=== PATIENT | female | born 1940 | race Caucasian/White ===

== ENCOUNTER 2018-08-08 15:46 | Inpatient (IN) | payer OTHER ==
[~2018-08-08] VITALS: Ht 160 cm; Wt 45.4 kg
--- NOTE | ~2018-08-08 | D ---
[facility] [place] [address] DISCHARGE SUMMARY Name: EDIL DOWD Room #: 520B-B [facility] IN M.R.#: [id number] Admission: 08/08/18 ������������������ Attend Phys: Prasanna Montoya DO Discharge: 08/16/18 ������������������ Date of : 44 Report #: [id number] THIS REPORT FOR: //name// CC: Trinidad Montoya DATE OF SERVICE: 08/16/2018 ATTENDING: Prasanna Montoya D.O. HAND FLESHER: At the time of discharge, Basilio Hayes M.D. DISCHARGE DIAGNOSES: Major neurocognitive disorder, likely due to Alzheimer disease with behavioral disturbance, improved. Medical comorbidities at time of discharge include CVA, right-sided weakness, slurred speech, hemiparesis, indwelling Alexander catheter due to neurogenic bladder, gastroesophageal reflux disease, hypertension, hyperlipidemia, anemia, osteoarthritis, and history of DVT in the right lower extremity. DISCHARGE PLAN: She is discharged. The patient ate an average 80-90% of her meals. Her last ____ is in the hospital. The patient will be discharged to [facility]. Psychiatric medical care will be per that facility. EKG this admission showed a QTC of 435, QT 353, MT 176, normal rate 91 REASON FOR ADMISSION: Agitation. HOSPITAL COURSE: The patient was treated fairly aggressively with olanzapine titrated to 7.5 mg q. 12 hours. The patient was difficult to communicate with. She denied SI, AH. Difficult memory. Memory is clear at this point, VITAL SIGNS: Temperature is 36.9, pulse 94, respirations 20, BP 99/66, and O2 sat 95. MUSCULOSKELETAL: Nonambulatory in the wheelchair. GENERAL: She is well-developed, fairly nourished disabled appearing female with facial hirsutism. She denied SI, HI, denied intent to harm others. Mood and affect were constricted. Insight limited. Judgment limited. Fund of knowledge is well below average. Prognosis for this patient is guarded given factors including advanced dementia propensity to develop sepsis. ��������������������������������������������� ���������������������������������������� By: ��������������������������������������������� [id number] Prasanna Montoya, DO /nt
[2018-08-08 15:46] VITALS: BP 98/72
[2018-08-08 16:06] LABS: URINE BILIRUBIN NEGATIVE (Negative); URINE BLOOD NEGATIVE (Negative); URINE CLARITY CLOUDY; URINE COLOR YELLOW; URINE GLUCOSE-RANDOM* NEGATIVE (Negative); URINE KETONES 1+ (Negative); URINE LEUKOCYTES-REFLEX 2+ (Negative); URINE NITRITE-REFLEX POSITIVE (Negative); URINE PROTEIN (DIPSTICK) 2+ (Negative); URINE SPECIFIC GRAVITY 1.025 (1.005-1.035)
[2018-08-08] MEDS ORDERED: FLOMAX0.4 MG PO (16:07)
[2018-08-08] MEDS ORDERED: ATIVAN0.5 MG PO (16:07)
[2018-08-08] MEDS ORDERED: TYLENOL325 MG PO (16:07)
[2018-08-08] MEDS ORDERED: HYDROXYZINE HCL25 M1 PO (16:07)
[2018-08-08] MEDS ORDERED: VALSARTAN-HCTZ1 EAC1 PO (16:08)
[2018-08-08] MEDS ORDERED: KLOR-CON 1010 MEQ PO (16:08)
[2018-08-08] MEDS ORDERED: PREPLUS CA-FE1 EACH PO (16:08)
[2018-08-08 16:12] LABS: HEMATOCRIT 35.4 % (37.0-47.0); HEMOGLOBIN 12.2 gm/dL (12.0-15.0); MCH 34.6 pg (26.0-34.0); MCHC 34.5 g/dL (28.0-37.0); MCV 100.3 fL (80.0-100.0); RBC 3.53 mil/uL (4.20-5.00); RDW 13.8 % (10.5-14.5); WBC 7.7 thou/uL (4.0-11.0)
[2018-08-08 16:15] LABS: SQUAMOUS >10 Many /LPF (0-3)
[2018-08-08 16:16] LABS: AMORPHOUS URATES Few /LPF (None Seen); BACTERIA-REFLEX >30 Many /HPF (None Seen); CASTS None Seen /LPF (None Seen); URINE RBC None Seen /HPF (0-2)
[2018-08-08 16:21] LABS: CALCIUM 8.9 mg/dL (8.5-10.1); CREATININE 0.8 mg/dL (0.6-1.0); POTASSIUM 4.1 mmol/L (3.5-5.1)
[2018-08-08 16:25] LABS: AMP/METHAMP Negative (Negative); BARBITURATES Negative (Negative); BENZODIAZEPINES Negative (Negative); COCAINE Negative (Negative); METHADONE Negative (Negative); OPIATES Negative (Negative); PCP Negative (Negative)
[2018-08-08 16:26] LABS: ALBUMIN 3.1 g/dL (3.4-5.0); DIRECT BILIRUBIN 0.1 mg/dL (<0.1-0.3); TOTAL BILIRUBIN 0.5 mg/dL (<0.1-1.0); TOTAL PROTEIN 6.4 g/dL (6.4-8.2)
[2018-08-08 18:10] VITALS: BP 113/84
--- NOTE | 2018-08-09 02:53 | NUR ---
ADMISSION NOTE - EDIL WAS TRANSFERRED FROM [facility] ED UP [facility], SHE CURRENTLY HAS A DPOA WHO IS AYLIN AND ELINA. PT SEES DR. THACKER OUTSIDE. THE HAS HX OF A HEMMORHAGIC CVA IN 02/07 AND DVT IN THE RLL WHICH RESULTED IN R SIDED WEAKNESS. PER HX SHE USED TO LIVE WITH HER BROTHER, BUT BROTHER WAS UNABLE TO TAKE CARE OF HER AND SHE WAS MOVED TO [facility] HOME. [facility] REPORTS HER INCREASING AGGRESSION AND COMBATIVES THAT SHE IS NO LONGER REDIRECTABLE FOR THE THEIR PROGRAM. UPON ONE TO ONE HER VOICE IS GARBLED, IS DIFFICULT TO MAKE OUT WHAT SHE IS SAYING, UPON ADMISSION VSS, NO S/S OF DISTRESS. NURSING INITIATED ALL PRECAUTIONS RECEIVED ADMISSION ORDERS AND NOTIFIED HOSPITALIST, WHILE HOSPITALIST DOES NOT COVER DR. THOMPSON GROUP, CRANE FOLLOWER GAVE US ORDERS TO NOTIFY THAT GROUP IN THE MORNING WHICH WILL BE PASSED ALONG TO ON COMING STAFF. NURSING WILL ENSURE ALL PRECAUTIONS ARE IN PLACE AND MONITOR ON Q12 ROUNDS FOR SAFETY.
--- NOTE | 2018-08-09 06:36 | NUR ---
PATIENT GOT 7.8 HOURS OF SLEEP, PER STAFF
[2018-08-09 09:22] VITALS: BP 142/94
--- NOTE | 2018-08-09 12:25 | NUR ---
Pt was on a mechanical soft diet at prior facilty. If choking or difficulty chewing is observed, [facility]
--- NOTE | 2018-08-09 15:46 | NUR ---
ASSUMED CARE AT O700 THIS MORNING. PT. GOTTEN UP, DRESSED AND ON THE UNIT FOR BREAKFAST. HAS BEEN COMPLIANT WITH MEDICATIONS TODAY. HAS BEEN QUIET WHEN IN HER W/C AND ON THE UNIT. SHE HAS GONE TO GROUPS.
[2018-08-09 20:04] VITALS: BP 122/82
--- NOTE | 2018-08-09 22:19 | NUR ---
ASSUMED CARE OF THE PT AT 1914 PM. THE PT WAS LYING IN BED WHEN THIS ANIMAL BIOLOGIST CAME ON DUTY, SHE TOOK HER HS MEDICATION WITHOUT ANY DIFFICULY. INCONT AT TIMES. IS TALKING TO HERSELF AT THIS TIME. HEART RATE REGULAR, SHE HAS A PACEMAKER TO THE RIGHT SIDE OF HER CHEST. LUNGS CLEAR BILATERALLY, RESP, EVEN, AND UNLABORED. +BS HEARD IN ALL 4 QUADRANTS AT THIS TIME. ALERT ET CONFUSED AT TIMES. REMAINS ON 12 MINUTE CHECKS FOR HER SAFETY.
--- NOTE | 2018-08-09 23:32 | NUR ---
THE PT HAS BEEN YELLING LOUDLY, VERY IRRITABLE, TRYING TO GET OUT OF BED. READJUSTED THE PT IN BED SEVERAL TIMES AND SHE CONTINUES TO TRY TO GET OUT OF BED, YELLING AT STAFF. MEDICATED WITH ZYPREXA 2.5 IM TO HER LEFT HIP PER ORDER. STAFF WILL CONTINUE TO MONITOR EVERY 12 MINUTES FOR HER SAFETY.
--- NOTE | 2018-08-10 02:56 | NUR ---
THE PT APPEARS TO BE RESTING QUIETLY IN BED AT THIS TIME, RESP., EVEN, AND UNLABORED. REMAINS ON 12 MINUTE CHECKS FOR THE PT'S SAFETY.
--- NOTE | 2018-08-10 07:56 | EKG ---
[place] [address] [facility] [facility] [place] [address] ELECTROCARDIOGRAM REPORT Name: EDIL DOWD Room #: [facility] ADM IN M.R.#: [id number] ������������������ Admission: 08/08/18 ������������������ Attend Phys: Prasanna Montoya DO Discharge: ������������������ Date of : 42 Report #: [id number] ����������������������������������������������������������������� [id number] THIS REPORT FOR: //name// 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 ��������������������������������������������� 08/10/18 0756 1415 [id number] Sotero Carrasco MD, [facility] /EPI
[2018-08-10 09:57] VITALS: BP 83/54
--- NOTE | 2018-08-10 10:36 | NUR ---
SW schedule a family for pt on August 14, 2018 at 3:45pm.
--- NOTE | 2018-08-10 11:29 | NUR ---
PSYCHOSOCIAL ASSESSMENT Diagnosis: AGITATION Admit Date: 08/08/18 Psychiatrist: SUMIT Symptoms associated with current admission: Violence/aggression Anxiety/panic Presenting problems: Pt was apprehensive towards staff. Pt was yelling and playing with her feces. Precipitating Factors: Non-compliance psychothx Non-compliance medication Comments: History of High Risk Behavors: Hx violence/aggression Suicide Risk Factors: D A-Signs of alcohol/substance abuse w/ suicide ideation B-Recent suicidal thoughts or attempts C-Recent thoughts or attempts of harming someone else D-Altered mental status due to psychiatric/chem dep etiology E-The behavior exists - add comment PSYCHIATRIC HISTORY Age of onset: 78 Prior hospitalizations: Denies hx hospitalization Hospital names and dates, if available: Most Recent Outpatient HX: Denies prior OP services Additional information: Legal Status: DPOA Guardian/Conservatorship type: DPOA Contact name: Dominic Carlisle Contact phone: [phone] Other: Name: Phone: Other legal issues: (Arrests/convictions Current Status) None P.O. Name and Phone #: FAMILY HISTORY Place [place], [place] Raised in: [place] # Siblings & order: Pt have one brother, eldest Describe relationships within family of origin: Pt was close with her brother until he . Any psychiatric or substance abuse problems within family of origin: Y Has patient been sexually or physically abused, neglected or been taken advantage of financially? N Has the abuse been reported? N Other pertinent family information: Marital history/significant relationships: Domestic violence: N Children ages & who is caring for them: Pt has two adult children Is child welfare involved? N Drug history: None Alcohol Use: Frequency: Quantity: Have you ever felt you ought to Cut down on drinking? Have people Annoyed you by criticizing your drinking? Have you ever felt bad or Guilty about your drinking? Have you ever had a drink first thing in the morning to steady your nerves/get rid of a hangover(Eye senior research consultant) CAGE TOTAL 0 If CAGE score is 3 or more, notify provider for withdrawal orders! AXIS SCREENING TOOL [place] I Mood Disorders: [place] II Personality/Mental Retardation: [place] III Medical Impairment: Alzheimer's HTN [place] IV Problem(s) with: Other psych/environ prob Health care services [place] V: 50-Serious w/impairment Additional [place] comments: PERSONAL BACKGROUND Relevant cultural issues (ethnicity, values, beliefs, spiritual): Spiritual Confucianist: Evangelical Importance of episcopal to patient: Medium What hobbies/interests does the patient have? 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 Occupational/Work: Do you work? N Do you want to work? N How many hours do you work/week? 0 How many jobs have you had in the past 5 years? 0 Do you need assistance finding a job? N Does the patient need assistance in job training? N Source of income: SSI Does patient have a Payee? Y Payee name: Dominic Carlisle Approximate monthly income: 1500 Does patient have adequate funds for next 30 days? Y Education background: High school diploma Highest grade completed: 12th grade Other Educational/training programs: Functional deficits: Yes, see explain Explain functional deficits: RIGHT SIDED WEAKNESS FROM CVA Current living situation: Homeless [facility] Does the patient plan to continue there after DC? Yes Patient lives with: Unrelated adult Will family/significant other be involved in treatment? Other community support services utilized: Pt will need continuance care Support System Available (family/friend) Name: Dominic Carlisle Relationship: Son Name: Phone: Relationship: Name: Phone: Relationship: Patient strengths: Family support Motivated Insight Community support Patient's assets: Good self care Verbal Positive support system Patient's weaknesses: Chronic hx mental illness Education level Health problems Additional weaknesses: Pt need to be assessed for Major Neurocognitive Disorder Patient's perception of current manager social/case management needs: Pt family mention that SS is someone who assist with care PRELIMINARY DISCHARGE PLAN Discharge plan/Community resource contacts: Pt will be d/c to [facility] Discharge needs: Pt will need to be transported to . Problems anticipated on discharge: Compliance w/ med regimen Comments: (factors affecting DC plan/pt. response/interventions) Pt will be d/c to for continuance care. Pt will need a memory care setting.
--- NOTE | 2018-08-10 16:35 | NUR ---
PATIENT HAS BEEN UP AND OUT ON THE UNIT WITH ASSIST OF STAFF. PATIENT USES WHEELCHAIR FOR MOBILITY. SHE TOOK ALL MEDICATION CRUSHED IN APPLE SOURCE WITH LOTS OF ENCOURAGEMENT FROM STAFF. BETANCOURT CATH DISCONTINUED AT 1200HOURS, PER DR. ARANA'S ORDER. SHE HAS BEEN TOILETED X 2 AT THIS TIME, PATIENT IS VOIDING WITHOUT DIFFICULTY. PATIENT HAS AN ORDER FOR BLADDER SCAN IN 24 HOURS, THAT IS AT 12:00 ON 08/11/18, AND TO STRAIGHT CATH IF PVR IS GREATER THAN 400 CC. PATIENT IS ALERT WITH PERIODS OF FORGETFULNESS AND CONFUSION. SHE DENIES SUICIDAL AND HOMOCIDAL IDEATION. PATIENT NEED ASSIST WITH ADL, AND FEEDING. APPETITE IS FAIR, SHE IS EATING MEALS AND DRINKING FLUID FAIRLY WELL. NO AGGRESSION OR AGITATION NOTED. PATIENT CAN GET IRRITABLE WITH CARE, NO SIGN OF ACUTE DISTRESS NOTED. PATIENT CURRENTLY IN DAY ROOM VISITING WITH FAMILY, WILL MONITOR FOR SAFETY.
[2018-08-10 20:32] VITALS: BP 79/51
--- NOTE | 2018-08-10 22:38 | NUR ---
ASSUMED CARE OF THE PT AT 1915 PM. THE PT IS ALERT TO PERSON ET PLACE. THE PT HAS A PACEMAKER ON THE RIGHT SIDE OF HER CHEST. HEART RATE REGULAR. LUNGS CLEAR BILATERALLY, RESP., EVEN, AND UNLABORED. +BS HEARD IN ALL 4 QUADRANTS. THE PT HAS RIGHT SIDED WEAKNESS FROM A PREVIOUS STROKE. SHE IS TO BE TAKEN TO THE BATHROOM EVERY 2 HOURS WHEN AWAKE, PVR AFTER EACH TIME SHE VOIDS. REMAINS ON 12 MINUTE CHECKS FOR HER SAFETY.
[2018-08-11 00:56] VITALS: BP 110/76
--- NOTE | 2018-08-11 03:06 | NUR ---
BLADDER SCANNED THE PT AND SHE HAD 232 CC OF URINE IN HER BLADDER. ENCOURAGED THE PT TO DRINK FLUIDS.
--- NOTE | 2018-08-11 04:49 | NUR ---
STRAIGHT CATHED THE PT AT 0445 AM, GOT 300 CC OF CLEAR NATALIE URINE, THE PT HAD NOT VOIDED AT THIS SHIFT. REMAINS ON 12 MINUTE CHECKS FOR HER SAFETY.
[2018-08-11 08:31] VITALS: BP 119/71
--- NOTE | 2018-08-11 13:46 | NUR ---
CALLING OUT FREQUENTLY IN DAYROOM FOR VARIOUS SMALL ISSUES IE "MOVE MY LEG,PULL MY SHIRT DOWN,STRAIGHTEN MY SOCK"ETC. ANXIOUS FACIAL EXPRESSION BUT DOES SEEM TO CALM IF STAFF SITTING AT HER SIDE. BLADDER SCAN COMPLETED AT 0900 WITH 300ML RESULTS-DENIES FEELING DISCOMFORT IN PELVIC/BLADDER AREA UPON PALPATION. TRANSFERS WITH ASSIST OF TW0-INCONTINENT OF SMALL AMOUNT URINE IN BRIEF AT APPROX 0830.XYPREXA 2.5MG GIVEN PO PRN AT 1000 FOR INCREASED YELLING,IRRITABILITY AND AGITATION DID APPEAR LESS ANXIOUS DISTRAUGHT AND NO LONGER YELLING OUT CONSTANTLY APPROX 30 MIN AFTER ADMINISTRATION
--- NOTE | 2018-08-11 16:47 | NUR ---
SRINIVAS sent updated notes to hector ballesteros [facility] [phone]. talked to [facility] [phone]. She knows about the family meeting on Tuesday and understands that d/c might happen on Tuesday.
--- NOTE | 2018-08-11 17:21 | NUR ---
PT REPORTING SOME OCCASSIONAL MID-ABDOMINAL PAIN THAT SHE STATES "COMES AND GOES" STATES TO THIS NURSE "ITS NOT BAD RIGHT NOW BUT IT HURT AWHILE AGO" NO REPORTED PAIN UPON PALPATION OF PELVIC/ABDOMINAL AREA. DENIES FEELING LIKE SHE NEEDS TO VOID STATING "IT MORE MY STOMACH HURTING" BLADDER SCAN COMPLETED AT 1630 AND NOTED TO HAVE 237ML IN BLADDER-PLACED ON COMMODE AND HAD MEDIUM FORMED BM AND SCANT-LESS THAN 20CC URINE IN COMMODE.
[2018-08-11 19:46] VITALS: BP 89/51
--- NOTE | 2018-08-12 01:42 | NUR ---
Care assumed of patient at 1900: Patient sleeping in bed upon start of shift. Patient easily aroused for assessment and medication administration. Patient frustrated to be woken up. Patient receives abx tx for the dx of UTI. No s/s of adverse effects noted at this time. Patient incontinent of bladder x1. Orders obtained to d/c Zyprexa 2.5mg po BID; start Zyprexa 5mg po BID; change diet to mechanical soft due to difficulty chewing. Patient politely asked nurse to allow her to go back to sleep. Patient has been resting quietly.
--- NOTE | 2018-08-12 09:24 | H ---
[facility] [place] [address] HISTORY AND PHYSICAL Name: EDIL CARLISLE Room #: 520B-B ADM IN M.R.#: [id number] Admission: 08/08/18 ������������������ Attend Phys: Prasanna Montoya DO Discharge: ������������������ Date of : 42 Report #: [id number] THIS REPORT FOR: //name// CC: Trinidad Montoya DATE OF SERVICE: 08/08/2018 INPATIENT PSYCHIATRIC EVALUATION ATTENDING PHYSICIAN: Prasanna Montoya DO. NITRATE OPERATOR: Emigdio Martinez MD. NORMAL PRIMARY CARE PHYSICIAN: Trinidad Page MD. REASON FOR ADMISSION: The patient was sent from [facility]. HISTORY OF PRESENT ILLNESS: The patient has had increasing agitation over the last several days, acting aggressively towards staff. The patient is status post stroke. She does have an indwelling Alexander catheter, which was not known at the time I accepted the patient. UTI was found in the ER. Apparently, there was a CBC and chem panel done on 07/18/2018, which were both normal. She also had a right leg venous Doppler, which was positive for DVT on 07/24/2018. The patient is not currently on blood thinners. The patient has been yelling towards staff also at the nursing facility. PCP again, Dr. Page. On interview with the patient today, the patient is guarded. She states some being nosey. She is not oriented to day, only partially to situation. She is oriented to person. She is denying specific complaints, so lack of insight apparently. The emergency contact #1 is apparently Jassi Carlisle. Emergency contact #2, listed as a responsible alliance party, her daughter, Yessenia Chin, only to be in touch with them today PAST MEDICAL HISTORY: Includes CVA, right-sided weakness, slurred speech, Alexander, GERD, hypertension, hyperlipidemia, anemia, neuromuscular bladder dysfunction, osteoarthritis and right lower extremity DVT. PSYCHIATRIC HISTORY: Dementia, anxiety. MEDICATIONS: At nursing facility, acetaminophen 325 mg p.o. q.4 p.r.n. for pain, tamsulosin 0.4 mg p.o. daily for urinary retention, hydroxyzine 10 mg p.o. t.i.d. for anxiety, lorazepam 0.5 mg p.o. q.6 hours for anxiety, potassium chloride 10 mEq p.o. daily. She takes prePLUS calcium, iron, vitamin and valsartan/hydrochlorothiazide 160/12.5 mg p.o. daily. [address] [address] HISTORY AND PHYSICAL Name: EDIL CARLISLE Room #: 520B-B ADM IN M.R.#: [id number] Admission: 08/08/18 ������������������ Attend Phys: Prasanna Montoya DO Discharge: ������������������ Date of : 42 Report #: [id number] ALLERGIES: TO ASPIRIN, CODEINE, INFLUENZA, PENICILLIN. SOCIAL HISTORY: Denied recreational drug use, alcohol or tobacco use. REVIEW OF SYSTEMS: From Dr. Lopez in the Emergency Room, CONSTITUTIONAL: Denies fever, chills, malaise or unexplained weight change. EYES: Denies eye pain, visual change or discharge. HENT: Denies hearing changes, ear drainage, ear infections, ear pain, neck pain or neck stiffness. RESPIRATORY: Denies cough, shortness of breath, hemoptysis or respiratory distress. CARDIOVASCULAR: Denies chest pain, chest pain with exertion or edema. GASTROINTESTINAL: Denies abdominal pain, nausea, vomiting or diarrhea. GENITOURINARY: Denies burning, frequency or dysuria. MUSCULOSKELETAL: Denies back pain, joint pain, muscle weakness or myalgias. SKIN: Denies rash. PSYCHIATRIC: Denies homicidal or suicidal ideation or hallucinations. Ten-point review of systems was otherwise negative. PHYSICAL EXAMINATION: VITAL SIGNS: Weight 68.04 kilos translates to 150 pounds. Physical exam was normal grossly to the ER. She does have a right upper extremity hemiparesis and gait abnormality. LABORATORY DATA: From the ER: Sodium 141, potassium 4.1, chloride 103, bicarbonate 31, anion gap 7, BUN 15, creatinine 0.8, estimated GFR 70, glucose 106, calcium 8.9, total bilirubin 0.5, direct bilirubin 0.1, AST 21, ALT 23, alkaline phosphatase 95, total protein 6.4, albumin 3.1. Hematology: CBC: White count 7.7, H and H 12.2 and 35.4, platelet count 183. Urine tox screen is negative. UDS is positive for 2+ protein, 1+ ketones, positive nitrites, 2+ leukocyte esterase, 16-20 wbc's, greater than 10 squamous cells, few amorphous urates that is uric acid crystals and greater than 30 per high power field bacteria. Culture has been sent. The patient got IV fluids and 1 gram of Rocephin in the ER. I went ahead and ordered subsequent IM Rocephin today and tomorrow, 08/09/2018 and 08/10/2018. MENTAL STATUS EXAMINATION: This is a well-developed, disheveled, appearing older than stated age female. Attention limited. Concentration limited. Speech slow, soft deliberate. Thought process linear, limited. Thought content, relative poverty of thought. No psychomotor retardation. No psychomotor agitation. She is in normal chair, with fully intact. Insight limited. Judgment limited. Fund of knowledge below average at this point. FORMULATION: A 78-year-old female with history of dementia, probably vascular in origin, and to that end her diagnoses from the facility include, [facility] [address] [place] [address] HISTORY AND PHYSICAL Name: EDIL CARLISLE Room #: 520B-B ADM IN M.R.#: [id number] Admission: 08/08/18 ������������������ Attend Phys: Prasanna Montoya DO Discharge: ������������������ Date of : 42 Report #: [id number] forgot to mention this hemiplegia, hemiparesis, unspecified bronchitis. Actually, I do not see where it mentions of dementia, but I am suspecting it. PLAN: As follows, she will get cefuroxime 250 mg b.i.d., unspecified duration, hospice ordered that, tamsulosin 0.4 mg p.o. daily, potassium chloride 10 mEq p.o. daily, losartan 100 mg p.o. daily, hydrochlorothiazide 12.5 mg daily, trazodone 25 mg p.o. at bedtime p.r.n. She has got p.r.n. olanzapine and lorazepam 0.5 q.6 p.r.n. I think we will go ahead and discontinue rather the lorazepam, I think the trazodone as well, we will discontinue for now. I would like to start her on 2.5 mg q. 12 of scheduled olanzapine that will help her to get through any delirium associated with the urinary tract infection. We would evaluate and stabilize. ESTIMATED LENGTH OF STAY: 7-10 days. STRENGTHS: She is insured, has a supportive family. WEAKNESSES: Advancing age, physical debility, possible dementia. We will do a cognitive screen in a few days as well when things clear. ��������������������������������������������� <ELECTRONICALLY SIGNED> ���������������������������������������� By: Prasanna Montoya DO ��������������������������������������������� 08/12/18 0924 1348 1518 Prasanna Montoya DO /nt
[2018-08-12 10:49] VITALS: BP 100/67
--- NOTE | 2018-08-12 17:36 | NUR ---
PATIENT HAS BEEN RESTLESS AND ANXIOUS TODAY. ATTEMPTS TO EXPLAIN CONCERNS BUT DIFFICULT TO UNDERSTAND WITH APHASIC SPEECH AND NO LOWER DENTURES. COMPLAINED OF UPPER DENTURE SHIFTING AROUND IN MOUTH. APPETITE BETTER IF ASSISTED WITH FEEDING. ALSO DISTRAUGHT WANTING TO LEAVE - FIXATED ON GOING HOME. FRUSTRATED WITH HEMIPARIESIS OF RIGHT SIDE AND INABILITY TO HELP HERSELF. LOWER EXTREMITY NEEDS TO BE ELEVATED WHEN IN WHEELCHAIR AND ARM RESTING ON PILLOW. PATIENT TEARFUL AT TIMES - NEEDS MUCH REASSURANCE AND ENCOURAGEMENT. RESPONSIVE TO EMPATHY AND COMFORT MEASURES. ANXIETY LEVEL WAS ESCALATING LATER IN EVENING. CONTACTED NURSE PRACTIONER RON AND SHE PRESCRIBED ONE TIME DOSE OF SEROQUEL 25 MG. WHICH HELPED CONSIDERABLY TO CALM PATIENT DOWN . ADMINISTERED AROUND 1630 AND NOTABLY EFFECTIVE. ATE 25% - 50 % OF DINNER.
[2018-08-12 19:57] VITALS: BP 126/83
--- NOTE | 2018-08-12 22:50 | NUR ---
Care assumed of patient at 1900: Patient sitting in w/c in the day room upon start of shift. Patient interacting with another peer at the table. Patient ate 50% snack provided. Patient took medication whole without difficulty. Patient has garbled speech. Difficulty to understand patient at times. Patient alert and oriented to person. Patient requested to go home several times and became fixated on this. Patient repeating to all staff and peers several times that she wants to go home, someone please take her home. Patient assisted to her room and transferred to bedside commode with staff assist x2. Patient urinated approximately 150cc yellow urine. Patient denies HI/SI/AH/VH. Patient does appear depressed and becomes easily agitated with others. Patient started to cry out while laying in bed at approximately 2200. Patient reported having pain in her bladder. Patient denied having to use the bathroom and did not have any incontinence. Bladder scanned and displayed >999cc urine in bladder. Debbie Abdalla NP, notified. Patient has the diagnosis of neurogenic bladder. Tipton catheter was removed 08/10/18. Patient has been able to void small amounts over the last 2 days. Patient was straight cathed once over the last 48 hours, per medical record. PATIENT BILLER feels that voiding trial has not been effective for this patient and order obtained to replace tipton catheter to DD. Tipton cath 16F/10cc placed. Patient tolerated well. Output 1,200cc at this time. Patient appreciative and appears to be resting well.
[2018-08-13 10:00] VITALS: BP 105/54
--- NOTE | 2018-08-13 14:57 | NUR ---
Assumed pt care this am, pt has been on her wheelchair for most of the day. Prefers to have a pillow in between her legs while on her wheelchair. Right sided hemiparesis noted, needs assists when eating thus the increase in food and fluid intake. Speech is very difficult to understand, pt would sit with her peers in the family room and during meals. FC is patent draining light yellow urine. All medications taken. POC followed.
[2018-08-13 19:32] VITALS: BP 106/76
--- NOTE | 2018-08-14 00:23 | NUR ---
Care assumed of patient at 1900: Patient sitting in w/c in day room watching TV at start of shift. Patient alert and oriented to person only. Patient confused and forgetful. Patient has mumbled, slurred speech r/t CVA with right sided hemiplegia. Alexander catheter patent, draining clear, yellow urine. Patient ate 100% snack, required to be fed by staff. Patient took medication whole without difficulty. Patient reported pain rated 5/10 to right leg. Re-positioning not effective. Administer PRN Tylenol po. Patient sleeping at time of follow up. Patient slept approximately 30 minutes and then started to yell. Patient continues to yell, hit side rail on bed, attempting to get out of bed. Patient is able to answer yes/no questions without difficulty. It is frequently hard to understand when she speaks. Patient was able to report she was scared. Pointing to ceiling, talking about a man in white. Stating she has to get out of here. Staff stayed with patient and attempted re-direction and re-orientation. None of which were effective. Patient provided PRN Zyprexa 2.5mg po. Medication not effective after one hour. BRAND ENGINEER Norma notified. Order obtained for Zyprexa Zydis 5mg sublingual 1x dose now; hold 0200 dose of Zyprexa 5mg po. Order noted. Patient continues to have flight of ideas, yelling for help, disorganized. Speaking about her father dying, her cousin having cancer, the man in a blue cloak. She also talked about how she "walked the edge of the garden with him today and cried and cried". Patient denies pain at this time. Unsure how to relieve anxiety and delusional thoughts at this time. LAUREN Rivera on unit. Chart reviewed and DPOA paperwork and MD order for DNR signed 07/11/18 in her chart. Medical record changed to reflect DNR order.
[2018-08-14 07:00] VITALS: BP 109/71
--- NOTE | 2018-08-14 09:53 | EKG ---
[address] [place] [address] ELECTROCARDIOGRAM REPORT Name: EDIL DOWD Room #: [facility] ADM IN M.R.#: [id number] ������������������ Admission: 08/08/18 ������������������ Attend Phys: Prasanna Montoya DO Discharge: ������������������ Date of : 44 Report #: [id number] ����������������������������������������������������������������� [id number] THIS REPORT FOR: //name// [facility] Test Date: 2018-08-14 Test Time: 01:06:41 Pat Name: EDIL DOWD Department: Room: [facility] Gender: F Systems Administrator: apurva : 1940 Requested By: Ivana Rivera Order Number: [id number] MD: Sotero Carrasco Measurements Intervals [place] Rate: 91 P: 46 DE: 176 QRS: -9 QRSD: 96 T: 34 QT: 353 QTc: 435 Interpretive Statements Sinus rhythm Nonspecific T wave abnormality Compared to ECG 08/09/2018 14:15:13 Sinus tachycardia no longer present T wave abnormality less prominent Electronically Signed On 08-14-2018 9:53:34 CDT by Sotero Carrasco [email or web address] ��������������������������������������������� <ELECTRONICALLY SIGNED> ���������������������������������������� By: Sotero Carrasco MD, [facility] ��������������������������������������������� 08/14/18 0953 5 5 Sotero Carrasco MD, [facility] /EPI
[2018-08-14 13:30] VITALS: BP 109/71
--- NOTE | 2018-08-14 13:41 | NUR ---
ASSUMED CARE AT 0700 THIS MORNING. PT. UP IN A W/C ON THE UNIT. SHE C/O OF A HEADACHE AND WANTED TYLENOL. TYLENOL GIVEN TO HER AND WAS MODERATELY EFFECTIVE. PT. UP FOR MEALS AND WAS COOPERATIVE WITH MEDICATIONS. REFUSED TO STAY IN GROUPS THE ENTIRE TIME, THOUGH. DENIES SI/HI BUT ALL MORNING SHE WAS TALKING ABOUT TALKING WITH RICARDO AND HER PARENTS. CATHETER WAS REINSERTED DURING THE VULCANIZER OPERATOR SHE HAS A NEUROGENIC BLADDER AND WAS RETAINING 1600 CC'S URINE. SHE WAS COMPLAINING OF PAIN. THIS MORNING SHE STATED SHE FELT BETTER BUT STILL WANTS TO TALK TO HER PARENTS.
[2018-08-14 19:59] VITALS: BP 92/60
[2018-08-14 21:47] VITALS: BP 92/60
--- NOTE | 2018-08-15 04:11 | NUR ---
PT RESTING COMFORTABLY IN BED AT [facility] OF SHIFT. BETANCOURT DRAINING WELL, AND PT HAS NO C/O PAIN. TOOK HS MEDS PRESCRIBED CRUSHED WITH APPLESAUCE. CONTINUES TO HAVE RAMBLING SPEECH. SLEPT WELL THROUGH THE NIGHT TO THIS POINT.
[2018-08-15 08:11] VITALS: BP 114/72
--- NOTE | 2018-08-15 10:18 | NUR ---
ASSUMED PATIENT CARE AT 0700. PATIENT ATE BREAKFAST, CALM MOOD, FLAT AFFECT, NO BEHAVIORS TO DATE THIS SHIFT. COMPLIANT WITH MEDICATIONS, WHOLE IN APPLESAUCE.
--- NOTE | 2018-08-15 11:27 | NUR ---
Date of Admission: 08/08/18 Date of Activity Therapy Assessment: 08/11/18 Activity Goal: Increase socialization Initial Goal: 1 Group activity/day Weekly progress towards goal: On track Group participation level: Minimal Behaviors observed: Patients participation has been inconsistent. When patient does attend group, participation is minimal. Patient is soft spoken and seemingly shy during large groups. Participation is mostly in observation. No agitation is noted. Plan: No change towards goal
[2018-08-15 21:03] VITALS: BP 155/88
--- NOTE | 2018-08-16 01:47 | NUR ---
ASSUMED CARE FROM DAY SHIFT PT CALM AND COOPERATIVE. SPEECH REMAIN SLURRED AND GARBLED, TOOK PO MEDICATION WITHOUT DIFF.HS CARE GIVEN AND PT SLEEPING WELL, HOLDING PO 0200 ZYPEXA DUE TO PT SOUND STATE OF SLEEP WILL CONTINUE TO ELVALUATE. FREQ ROUNDING CONITNUE FOR SAFETY. WILL REPORT CHANGES OR ABNORMNAL FINDINGS.
[2018-08-16 05:26] VITALS: BP 109/69
[2018-08-16 08:00] VITALS: BP 99/66
[2018-08-16] MEDS ORDERED: COZAAR100 MG PO (09:27)
[2018-08-16] MEDS ORDERED: ZYPREXA 5 MG TAB5 M1 PO ×2 (09:28→09:29)
[2018-08-16] MEDS ORDERED: HYDROCHLOROTH12.5 M1 PO (09:29)
--- NOTE | 2018-08-16 11:46 | NUR ---
ASSUMED CARE AAT 0700 THIS MORNING. PT. SITTING IN W/C, COOPERATIVE WITH STAFF. EATS MEALS IN THE DINING ROOM. COOPERATIVE WITH MEDICATIONS, ATTENDED GROUPS. HAD SHOWER AND BELONGINGS GATHERED.
== END 2018-08-16 16:00 | DRG 57 ==
LOC: ER 15:46 → SBH 16:59 → EROBS 17:04 → SBH 17:04
PROVIDERS: Emergency Medicine; ADMIT Psychiatry & Neurology Psychiatry
DX: G30.9 Alzheimer's disease, unspecified (principal); F02.81 Dementia in other diseases classified elsewhere, unspecified severity, with behavioral disturbance; I69.351 Hemiplegia and hemiparesis following cerebral infarction affecting right dominant side; N39.0 Urinary tract infection, site not specified; K21.9 Gastro-esophageal reflux disease without esophagitis; I10 Essential (primary) hypertension; E78.5 Hyperlipidemia, unspecified; F41.9 Anxiety disorder, unspecified; M19.90 Unspecified osteoarthritis, unspecified site; N31.9 Neuromuscular dysfunction of bladder, unspecified; I69.392 Facial weakness following cerebral infarction; Z86.718 Personal history of other venous thrombosis and embolism; Z79.01 Long term (current) use of anticoagulants; Z79.899 Other long term (current) drug therapy; Z88.6 Allergy status to analgesic agent; Z88.0 Allergy status to penicillin; Z88.7 Allergy status to serum and vaccine
CPT/HCPCS: 10880

== ENCOUNTER 2020-09-17 13:52 | Emergency (ER) | payer OTHER ==
[~2020-09-17] VITALS: Ht 162.6 cm; Wt 72.6 kg
[~2020-09-17 13:52] MED LIST: ATIVAN0.5 MG PO; COZAAR100 MG PO; FLOMAX0.4 MG PO; HYDROCHLOROTH12.5 M1 PO; HYDROXYZINE HCL25 M1 PO; KLOR-CON 1010 MEQ PO; PREPLUS CA-FE1 EACH PO; TYLENOL325 MG PO; VALSARTAN-HCTZ1 EAC1 PO; ZYPREXA 5 MG TAB5 M1 PO
[2020-09-17 14:19] LABS: ABSOLUTE NEUTROPHILS 2.7 thou/uL (1.4-8.2); BASOPHILS 0.5 % (0.0-2.0); EOSINOPHILS 3.8 % (0.0-3.0); HEMATOCRIT 33.5 % (37.0-47.0); LYMPHOCYTES 31.2 % (24.0-44.0); MCH 28.3 pg (26.0-34.0); MCHC 32.9 g/dL (28.0-37.0); MONOCYTES 10.1 % (1.0-8.0); PLATELET COUNT 219 thou/uL (150-400); POLYS 54.4 % (36.0-66.0); RBC 3.89 mil/uL (4.20-5.00); RDW 15.8 % (10.5-14.5); WBC 4.9 thou/uL (4.0-11.0)
[2020-09-17 14:38] LABS: CALCIUM 8.5 mg/dL (8.5-10.1); CREATININE 1.1 mg/dL (0.6-1.0); POTASSIUM 3.6 mmol/L (3.5-5.1)
[2020-09-17 14:48] LABS: TOTAL BILIRUBIN 0.4 mg/dL (0.2-1.0); TOTAL PROTEIN 7.1 g/dL (6.4-8.2)
[2020-09-17 14:50] LABS: URINE BILIRUBIN NEGATIVE (Negative); URINE BLOOD NEGATIVE (Negative); URINE CLARITY SL CLOUDY; URINE COLOR YELLOW; URINE GLUCOSE-RANDOM* NEGATIVE (Negative); URINE KETONES NEGATIVE (Negative); URINE PROTEIN (DIPSTICK) NEGATIVE (Negative); URINE SPECIFIC GRAVITY 1.015 (1.005-1.035); URINE UROBILINOGEN 0.2 E.U./dl (0.2-1.0)
[2020-09-17 14:51] LABS: URINE LEUKOCYTES-REFLEX 3+ (Negative); URINE NITRITE-REFLEX POSITIVE (Negative)
[2020-09-17 15:19] LABS: HYALINE CASTS 0-3 Few /LPF (None Seen)
[2020-09-17 15:20] LABS: CRYSTALS None Seen /LPF (None Seen); SQUAMOUS 0-3 Few /LPF (0-3)
[2020-09-17 15:22] LABS: BACTERIA-REFLEX >30 Many /HPF (None Seen); URINE RBC None Seen /HPF (NONE SEEN); URINE WBC-REFLEX 6-15 Few /HPF (0-5)
[2020-09-17] MEDS ORDERED: MACROBID 100 M100 M1 PO (15:43)
--- NOTE | 2020-09-17 16:06 | EKG ---
[address] [address] [facility] [place] [address] ELECTROCARDIOGRAM REPORT Name: EDIL DOWD Room #: REG Abdi#: [id number] Admission: 09/17/20 Attend Phys: Discharge: Date of : 44 Report #: [id number] [facility] ED Test Date: 2020-09-17 Test Time: 14:05:27 Pat Name: EDIL DOWD Department: Room: Gender: F Environmental Health Specialist: : 1940 Requested By: Yovany Bess Order Number: [id number] MD: Hector Torrez Measurements Intervals [place] Rate: 64 P: 8 W[place]: 211 QRS: -23 QRSD: 98 T: 17 QT: 415 QTc: 428 Interpretive Statements Sinus rhythm Borderline left axis deviation RSR' in V1 or V2, probably normal variant Compared to ECG 08/14/2018 01:06:41 RSR' in V1 or V2 now present T-wave abnormality no longer present Electronically Signed On 09-17-2020 16:06:25 CDT by Hector Torrez [email or web address] <ELECTRONICALLY SIGNED> By: Hector Torrez MD, [facility] 09/17/20 1606 140 04 Hector Torrez MD, [facility] /EPI
[2020-09-17 18:55] VITALS: BP 131/100
== END 2020-09-17 22:27 ==
LOC: ER 13:52
PROVIDERS: Emergency Medicine
DX: N39.0 Urinary tract infection, site not specified (principal); Z79.899 Other long term (current) drug therapy; Z88.6 Allergy status to analgesic agent; Z88.1 Allergy status to other antibiotic agents; Z88.0 Allergy status to penicillin